=== PATIENT | male | born 1995 | race African-American/Black ===

== ENCOUNTER 2022-05-27 05:51 | Emergency (ER) | payer SELFPAY ==
[~2022-05-27] VITALS: Ht 180.3 cm; Wt 72.0 kg
[2022-05-27] MEDS ORDERED: MORPHINE SULFATE 4 MG/ML SYR/VIAL IV SCH (06:45)
[2022-05-27] MEDS ORDERED: MORPHINE SULFATE 4 MG/ML SYR/VIAL IV ONE ×2 (07:45→14:00)
[2022-05-27] MEDS ORDERED: IOHEXOL 300 MG/ML 100ML BOTTLE IJ ONE (08:12)
[2022-05-27] MEDS ORDERED: KETAMINE 50mg/ML 10ml Vial (500mg/10ml) IV ONE (08:15)
[2022-05-27] MEDS ORDERED: PROPOFOL 10 MG/ML 20 ML IV ONE (08:15)
[2022-05-27] MEDS ORDERED: LIDOCAINE 1% HCL (LOCAL ANESTH.) INJ 20ML MDV IJ ONE (10:30)
[2022-05-27] MEDS ORDERED: HYDR-4902 PO (13:58)
[2022-05-27] MEDS ORDERED: KETOROLAC TROMETH 60MG/2ML VIAL IV ONE (14:00)
[2022-05-27] MEDS ORDERED: MORPHINE SULFATE 4 MG/ML SYR/VIAL IV STA (14:00)
[2022-05-27 14:10] VITALS: BP 133/83
== END 2022-05-27 14:15 | disposition home or self-care (01) ==
LOC: ER 05:51 → EDBD 05:51 → ER 14:15
DX: M79.601 Pain in right arm (principal); S42.402A Unspecified fracture of lower end of left humerus, initial encounter for closed fracture; W22.8XXA Striking against or struck by other objects, initial encounter; Y93.89 Activity, other specified; Y92.89 Other specified places as the place of occurrence of the external cause; Y99.8 Other external cause status
CPT/HCPCS: 24505; 70450; 71045; 71260; 72125; 73060; 73070; 73080; 74177; 96374; 96376; 99285; J2001; J2270; Q9967; J2704

== ENCOUNTER 2023-05-18 19:18 | Emergency (ER) | payer MEDICAID, OTHER ==
[~2023-05-18] VITALS: Ht 180.3 cm; Wt 77.2 kg
[~2023-05-18 19:18] MED LIST: HYDR-4902 PO
[2023-05-18 20:13] LABS: Basophils # (auto) 0 10 ^3/uL (0-0.2); Basophils % (auto) 0.7 % (0.0-2.0); Eosinophils # (auto) 0.2 10 ^3/uL (0-0.8); Hematocrit 36.5 % (41.0-53.0); Hemoglobin 12.2 g/dL (13.5-17.5); Lymphocytes # (auto) 2.3 10 ^3/uL (0.4-5.4); Lymphocytes % (auto) 35.3 % (10.0-50.0); Mean Corpuscular Hemoglobin 30.1 pg (28.0-32.0); Mean Corpuscular Hgb Conc. 33.4 g/dL (32.0-36.0); Mean Corpuscular Volume 90.3 fL (80.0-100.0); Monocytes # (auto) 0.5 10 ^3/uL (0-1.3); Neutrophils # (auto) 3.5 10 ^3/uL (1.6-8.6); Nucleated Red Blood Cells % 0.1 %; Red Blood Cells 4.04 10^6/uL (4.5-5.90); Red Cell Distribution Width 12.8 % (11.8-14.3); White Blood Cell 6.6 10^3/uL (4.4-10.8)
[2023-05-18 20:26] LABS: Alanine Aminotransferase 26 U/L (7-40); Albumin 4.1 g/dL (3.2-4.8); Alkaline Phosphatase 74 U/L (46-116); Anion Gap 5 (5-15); Aspartate Aminotransferase 20 U/L (13-40); BUN/Creatinine Ratio 7.1 (10.0-20.0); Blood Urea Nitrogen 10 mg/dL (9-23); Calcium 9.1 mg/dL (8.7-10.4); Carbon Dioxide 28 mmol/L (20-30); Chloride 108 mmol/L (98-107); Glucose 92 mg/dL (74-106); Potassium 3.8 mmol/L (3.5-5.1); Sodium 141 mmol/L (136-145)
[2023-05-18 20:27] LABS: Bilirubin, Total 0.6 mg/dL (0.2-1.0); Total Protein 6.8 g/dL (5.7-8.2)
[2023-05-18 20:32] LABS: INR 1.08 (0.9-1.15); Partial Thromboplastin Time 30.2 SEC (24.5-34.5); Prothrombin Time 11.3 sec (9.3-11.8)
[2023-05-18] MEDS ORDERED: KETOROLAC TROMETH 30 MG/ML 1ML VIAL IV ONE (21:00)
[2023-05-18 21:43] LABS: Urine Bacteria NONE SEEN /hpf (None Seen); Urine Blood Negative /uL (Negative); Urine Clarity Clear (Clear); Urine Color Yellow (Yellow); Urine Mucus FEW (None Seen); Urine Protein, UAD TRACE (Negative); Urine Specific Gravity 1.027 (1.001-1.035); Urine Urobilinogen Normal (Negative); Urine WBC 1 /hpf (0 - 3)
[2023-05-18 21:48] LABS: Amphetamine Screen, Urine Neg (NEGATIVE); Barbiturate Scree,Urine Neg (NEGATIVE); Benzodiazephine Screen, Urine Neg (NEGATIVE); Cocaine Screen, Urine Neg (NEGATIVE); Opiate Scree,Urine Neg (NEGATIVE)
[2023-05-18 21:49] LABS: Cannabinoid Screen, Urine Pos (NEGATIVE); Phencyclidine Screen, Urine Neg (NEGATIVE)
[2023-05-18] MEDS ORDERED: IBUP-1455 PO (23:31)
[2023-05-19 00:30] VITALS: BP 122/72; PULSE 85; RESP 16; O2SAT 98
== END 2023-05-19 23:32 | disposition home or self-care (01) ==
LOC: EDBD 19:18 → ER 19:18
DX: R51.9 Headache, unspecified (principal); Z98.890 Other specified postprocedural states; Z79.899 Other long term (current) drug therapy
CPT/HCPCS: 36415; 70450; 80053; 80307; 81001; 85025; 85379; 85610; 85730; 96374; 99285; J1885

== ENCOUNTER 2023-05-24 12:37 | Emergency (ER) | payer MEDICAID ==
[~2023-05-24] VITALS: Ht 170.2 cm; Wt 68.1 kg
[~2023-05-24 12:37] MED LIST changes: +IBUP-1455 PO
[2023-05-24 13:24] VITALS: BP 142/80; PULSE 51; RESP 18; TEMP 98.7; O2SAT 99
[2023-05-24] MEDS ORDERED: CLIN300C70 PO (14:05)
[2023-05-24] MEDS ORDERED: IBUP-1456 PO (14:05)
[2023-05-24] MEDS ORDERED: HYDROcodone-ACET 5/325MG TAB PO ONE (14:15)
== END 2023-05-24 14:17 | disposition home or self-care (01) ==
LOC: EDBD 12:37 → ER 12:37
DX: K04.7 Periapical abscess without sinus (principal)